=== PATIENT | male | born 1975 | race African-American/Black ===

== ENCOUNTER 2019-07-30 12:51 | Emergency (ER) | payer BC ==
[~2019-07-30] VITALS: Ht 172.7 cm; Wt 75.0 kg
[2019-07-30 13:00] VITALS: BP 171/102
[2019-07-30] MEDS ORDERED: IPRATRPIUM/ALBUTEROL 0.5/2.5MG 3 ML NEBU. NEB ONE (13:30)
[2019-07-30] MEDS ORDERED: predniSONE 20 MG TABLET PO ONE (13:30)
[2019-07-30] MEDS ORDERED: ALBU2.5V8 IH (14:09)
[2019-07-30] MEDS ORDERED: PRED50TA PO (14:09)
--- NOTE | 2019-07-30 14:09 | PHYS DOC ---
Past Medical History Past Medical History: Asthma (JONATHAN SANDOVAL APRN) Past Surgical History: Other Additional Past Surgical Histo: L leg sx (JONATHAN SANDOVAL APRN) Smoking Status: Current Every Day Smoker Alcohol Use: None Drug Use: None (JONATHAN SANDOVAL APRN) Adult General Chief Complaint Chief Complaint: ASTHMA HPI HPI Patient is a 44 year old male with history of asthma who presents to the ED today with shortness of breath due to his asthma that began 4 days ago. Patient reports using his inhaler with no relief (JONATHAN SANDOVAL APRN) Review of Systems Review of Systems Constitutional: Denies fever or chills [] Eyes: Denies change in visual acuity, redness, or eye pain [] HENT: Denies nasal congestion or sore throat [] Respiratory: Reports shortness of breath. Denies cough ] Cardiovascular: No additional information not addressed in HPI [] GI: Denies abdominal pain, nausea, vomiting, bloody stools or diarrhea [] : Denies dysuria or hematuria [] Musculoskeletal: Denies back pain or joint pain [] Integument: Denies rash or skin lesions [] Neurologic: Denies headache, focal weakness or sensory changes [] All other systems were reviewed and found to be within normal limits, except as documented in this note. (JONATHAN SANDOVAL APRN) Current Medications Current Medications Current Medications Medications (Trade) Dose Ordered Sig/Lemuel Start Time Stop Time Status Last Admin Dose Admin Albuterol/ Ipratropium (Duoneb) 3 ml 1X ONCE 07/30/19 13:30 07/30/19 13:31 DC 07/30/19 13:40 3 ML Prednisone (Prednisone) 60 mg 1X ONCE 07/30/19 13:30 07/30/19 13:31 DC 07/30/19 13:29 60 MG (MADISON LEON DO) Allergies Allergies Allergies Coded Allergies Type Severity Reaction Last Updated Verified No Known Drug Allergies 10/02/14 No (MADISON LEON DO) Physical Exam Physical Exam Constitutional: Well developed, well nourished, no acute distress, non-toxic appearance. [] HENT: Normocephalic, atraumatic, bilateral external ears normal, oropharynx moist, no oral exudates, nose normal. [] Eyes: PERRLA, EOMI, conjunctiva normal, no discharge. [] Neck: Normal range of motion, no tenderness, supple, no stridor. [] Cardiovascular:Heart rate regular rhythm, no murmur [] Lungs & Thorax: Diminished breath sounds throughout. Abdomen: Bowel sounds normal, soft, no tenderness, no masses, no pulsatile masses. [] Skin: Warm, dry, no erythema, no rash. [] Back: No tenderness, no CVA tenderness. [] Extremities: No tenderness, no cyanosis, no clubbing, ROM intact, no edema. [] Neurologic: Alert and oriented X 3, normal motor function, normal sensory function, no focal deficits noted. [] Psychologic: Affect normal, judgement normal, mood normal. [] (JONATHAN SANDOVAL APRN) Current Patient Data Vital Signs Vital Signs Date Time Temp Pulse Resp B/P (MAP) Pulse Ox O2 Delivery O2 Flow Rate FiO2 07/30/19 13:43 97 Room Air 07/30/19 13:00 98.6 87 18 171/102 (125) 98.6 (MADISON LEON DO) EKG EKG [] (JONATHAN SANDOVAL APRN) Radiology/Procedures Radiology/Procedures [] (JONATHAN SANDOVAL APRN) Course & Med Decision Making Course & Med Decision Making Pertinent Labs and Imaging studies reviewed. (See chart for details) This is a 44-year-old male patient presenting to the ED today with asthma symptoms. Has history of asthma. Has no PCP. He was given a DuoNeb treatment and prednisone. Feeling better. Lungs have cleared up. Discharged to home with prednisone and albuterol inhaler. Provided a clinic list as well as a doctor's list for follow-up. Blood pressure was noted at 170s over 100s. No previous history of hypertension, encouraged to follow up with a PCP for this. (JONATHAN SANDOVAL APRN) Dragon Disclaimer Dragon Disclaimer This electronic medical record was generated, in whole or in part, using a voice recognition dictation system. (JONATHAN SANDOVAL APRN) Departure Departure Impression: Primary Impression: Asthma exacerbation Additional Impression: Elevated blood pressure reading Disposition: HOME, SELF-CARE Condition: STABLE Referrals: NO PCP (PCP) follow up with a doctor from the list provided Patient Instructions: Asthma, Adult, [id number], Hypertension Additional Instructions: Please use the prednisone prescribed until completed. Ensure you get breathing treatments as needed. Follow-up with the doctor from the list provided for your high blood pressure as well as asthma symptoms Scripts Albuterol Sulfate (Proair Hfa) 8.5 Gm Hfa.aer.ad 2 PUFF IH PRN Q4-6HRS PRN for wheezing for 21 Days, #1 INHALER 1 Refill Prov: JONATHAN SANDOVAL APRN 07/30/19 Prednisone (PREDNISONE) 50 Mg Tablet 1 TAB PO DAILY, #4 TAB Prov: JONATHAN SANDOVAL APRN 07/30/19 Attending Signature Attending Signature I have reviewed the PA/HOUSE VISITOR's note and plan of care. I was available for consultation as needed during the patient's visit in the emergency department. I agree with the clinical impression, plan, and disposition. (MADISON LEON DO) Problem Qualifiers Primary Impression: Asthma exacerbation Asthma severity: mild Asthma persistence: unspecified Qualified Codes: J45.901 - Unspecified asthma with (acute) exacerbation JONATHAN SANDOVAL APRN Jul 30, 2019 14:09 MADISON LEON DO Jul 31, 2019 21:48
== END 2019-07-30 14:49 | disposition home or self-care (01) ==
LOC: ER 12:51
DX: J45.901 Unspecified asthma with (acute) exacerbation (principal); I10 Essential (primary) hypertension; F17.200 Nicotine dependence, unspecified, uncomplicated; Z98.890 Other specified postprocedural states
CPT/HCPCS: 94640; 99283; J7512; J7620

== ENCOUNTER 2020-06-26 15:26 | Emergency (ER) | payer SELFPAY ==
[~2020-06-26] VITALS: Ht 172.7 cm; Wt 86.4 kg
[~2020-06-26 15:26] MED LIST: ALBU2.5V8 IH; PRED50TA PO
--- NOTE | 2020-06-26 17:09 | PHYS DOC ---
Past Medical History Past Medical History: Asthma (SALAS SALAZAR FAN MAIL EDITOR) Past Surgical History: Other Additional Past Surgical Histo: L leg sx (MARTINSALAS FAN MAIL EDITOR) Smoking Status: Current Every Day Smoker Alcohol Use: None Drug Use: None (MARTINSALAS FAN MAIL EDITOR) General Adult EDM: Chief Complaint: HYPERTENSION HPI: HPI: Patient is a 45 year old male who presents with or today and they were doing their annual health screening as blood pressure was high. Work stated he needed to go get checked out before you come back to work. Patient then went to urgent care and they took his blood pressure and they told him to come to the emergency room. Patient's blood pressure in the ED is 193/92. Patient has a history of asthma and he is a smoker. Patient states the only cardiac related family history was his uncle had heart attack but did not . Patient states that he did not use his chest pain, dizziness, headache, numbness or tingling, focal weakness, abdominal pain, nausea vomiting, vision changes, shortness of breath, fever. He states he has been stressed more so than usual. He denies any type of pain or symptoms. He has no PCP. He states he takes no medications daily. States he does smoke with occasional marijuana. (SALAS SALAZAR FAN MAIL EDITOR) Review of Systems: Review of Systems: Constitutional: Denies fever or chills. [] Eyes: Denies change in visual acuity. [] HENT: Denies nasal congestion or sore throat. [] Respiratory: Denies cough or shortness of breath. [] Cardiovascular: Denies chest pain or edema. + Hypertension [] GI: Denies abdominal pain, nausea, vomiting, bloody stools or diarrhea. [] : Denies dysuria. [] Musculoskeletal: Denies back pain or joint pain. [] Integument: Denies rash. [] Neurologic: Denies headache, focal weakness or sensory changes. [] Endocrine: Denies polyuria or polydipsia. [] Lymphatic: Denies swollen glands. [] Psychiatric: Denies depression or anxiety. [] (SALAS SALAZAR FAN MAIL EDITOR) Heart Score: Risk Factors: Risk Factors: DM, Current or recent (<one month) smoker, HTN, HLP, family history of CAD, obesity. Risk Scores: Score 0 - 3: 2.5% MACE over next 6 weeks - Discharge Home Score 4 - 6: 20.3% MACE over next 6 weeks - Admit for Clinical Observation Score 7 - 10: 72.7% MACE over next 6 weeks - Early Invasive Strategies (SALAS SALAZAR APRN) Allergies: Allergies: Allergies Coded Allergies Type Severity Reaction Last Updated Verified No Known Drug Allergies 10/02/14 No (SALAS SALAZAR APRN) Physical Exam: PE: Constitutional: Well developed, well nourished, no acute distress, non-toxic appearance. [] HENT: Normocephalic, atraumatic, bilateral external ears normal, oropharynx moist, no oral exudates, nose normal. [] Eyes: PERRLA, EOMI, conjunctiva normal, no discharge. [] Neck: Normal range of motion, no tenderness, supple, no stridor. [] Cardiovascular:Heart rate regular rhythm, no murmur [] Lungs & Thorax: Bilateral breath sounds clear to auscultation [] Abdomen: Bowel sounds normal, soft, no tenderness, no masses, no pulsatile masses. [] Skin: Warm, dry, no erythema, no rash. [] Back: No tenderness, no CVA tenderness. [] Extremities: No tenderness, no cyanosis, no clubbing, ROM intact, no edema. [] Neurologic: Alert and oriented X 3, normal motor function, normal sensory function, no focal deficits noted. [] Psychologic: Affect normal, judgement normal, mood normal. Normal physical exam [] ([facility] APRN) Current Patient Data: Vital Signs: Vital Signs Date Time Temp Pulse Resp B/P (MAP) Pulse Ox O2 Delivery O2 Flow Rate FiO2 06/26/20 15:58 99.4 82 18 98 99.4 ([facility] APRN) EKG: EK and read by Dr. Leon is sinus rhythm and no STEMI. [] (SALAS SALAZAR APRN) Radiology/Procedures: Radiology/Procedures: [] ([facility]) Course & Med Decision Making: Course & Med Decision Making Pertinent Labs and Imaging studies reviewed. (See chart for details) See HPI. Alert and oriented x4. Ambulatory with a steady gait. No extremity edema. Speaks in full complete sentences. Skin pink warm and dry. Lungs are clear all station all lobes. Other than the hypertension patient's vital signs are within normal limits. Blood work unremarkable. Patient remains asymptomatic. He was given 0.1 mg clonidine and blood pressure has come down to 169/110. I have discussed this patient with Dr Phillips and he states to start him on Norvasc 5mg a day. [] (SALAS SALAZAR APRN) Manjuon Disclaimer: Taylor Disclaimer: This electronic medical record was generated, in whole or in part, using a voice recognition dictation system. (SALAS SALAZAR APRN) Departure Departure Impression: Primary Impression: Hypertension Qualified Codes: I10 - Essential (primary) hypertension Disposition: DC HOME SELF CARE/HOMELESS Condition: STABLE Referrals: NO PCP (PCP) Patient Instructions: Hypertension Additional Instructions: Follow-up with your primary care provider as soon as possible. If you start having chest pain or shortness of air or dizziness or severe headache you should return to the hospital. Plenty of fluids. Scripts Amlodipine Besylate (NORVASC) 5 Mg Tablet 1 TAB PO DAILY, #30 TAB 5 Refills Prov: SALAS SALAZAR APRN 06/26/20 Attending Signature Attending Signature I have reviewed the PA/SHOE SEWING MACHINE OPERATOR AND TENDER's note and plan of care. I was available for consultation as needed during the patient's visit in the emergency department. I agree with the clinical impression, plan, and disposition. (MADISON LEON DO) SALAS SALAZAR APRN Jun 26, 2020 17:09 MADISON LEON DO Jun 27, 2020 18:57
[2020-06-26 17:56] LABS: BASO # 0.2 x10^3/uL (0.0-0.2); BASO % 3 % (0-3); EOS # 0.2 x10^3/uL (0.0-0.7); EOS % 3 % (0-3); HEMATOCRIT 41.9 % (39.0-53.0); HEMOGLOBIN 14.5 g/dL (13.0-17.5); LYMPH # 2.9 x10^3/uL (1.0-4.8); LYMPH % 43 % (24-48); MEAN CORPUSCULAR HEMOGLOBIN 29 pg (25-35); MEAN CORPUSCULAR HGB CONC 35 g/dL (31-37); MEAN CORPUSCULAR VOLUME 84 fL (79-100); MONO # 0.6 x10^3/uL (0.0-1.1); MONO % 9 % (0-9); NEUT # 2.9 x10^3/uL (1.8-7.7); NEUT % 43 % (31-73); PLATELET COUNT 307 x10^3/uL (140-400); RED BLOOD COUNT 4.97 x10^6/uL (4.30-5.70); RED CELL DISTRIBUTION WIDTH 13.9 % (11.5-14.5); WHITE BLOOD COUNT 6.8 x10^3/uL (4.0-11.0)
[2020-06-26 18:09] LABS: CALCIUM 9.1 mg/dL (8.5-10.1); GFR 96.9; POTASSIUM 4.1 mmol/L (3.5-5.1)
[2020-06-26 18:15] LABS: ALBUMIN 3.7 g/dL (3.4-5.0); TOTAL BILIRUBIN 0.4 mg/dL (0.2-1.0); TOTAL PROTEIN 7.4 g/dL (6.4-8.2)
[2020-06-26] MEDS ORDERED: cloNIDine HCL 0.1 MG TABLET PO ONE (19:00)
[2020-06-26] MEDS ORDERED: AMLO5TAB4 PO (19:29)
[2020-06-26 19:34] LABS: BILIRUBIN,URINE NEGATIVE (NEG); CLARITY,URINE CLEAR; COLOR,URINE YELLOW; NITRITE,URINE NEGATIVE (NEG); PH,URINE 7.5 (<5.0-8.0); PROTEIN,URINE NEGATIVE (NEG-TRACE)
[2020-06-26 19:40] VITALS: BP 187/103
[2020-06-26 19:41] LABS: AMORPHOUS SEDIMENT,UR PRESENT /HPF; BACTERIA,URINE FEW /HPF (0-FEW)
[2020-06-26 19:42] LABS: RBC,URINE 0 /HPF (0-2)
--- NOTE | 2020-06-27 18:31 | EKG ---
[facility] [address] [place] [id number] Test Date: 2020-06-26 Test Time: 17:10:45 Pat Name: SATNAM BHANDARI Department: Room: Gender: M [address] Magistrate: : [id number] Requested By: SALAS SALAZAR Order Number: [id number] Reading MD: Measurements Intervals [place] Rate: 68 P: 60 SD: 130 QRS: 56 QRSD: 96 T: 39 QT: 362 QTc: 385 Interpretive Statements SINUS ARRHYTHMIA OTHERWISE NORMAL ECG RI6.02 No previous ECG available for comparison
== END 2020-06-26 19:47 | disposition home or self-care (01) ==
LOC: ER 15:26
DX: I10 Essential (primary) hypertension (principal); J45.909 Unspecified asthma, uncomplicated; F17.200 Nicotine dependence, unspecified, uncomplicated; Z98.890 Other specified postprocedural states
CPT/HCPCS: 36415; 80053; 81001; 83880; 84484; 85025; 93005; 99285